=== PATIENT | female | born 1960 | race Two or more races ===

== ENCOUNTER 2022-05-02 17:38 | Emergency (ER) | payer OTHER ==
[2022-05-02] MEDS ORDERED: HYDROCODONE/APAP 7.5/325 MG TAB ONE (17:54)
[2022-05-02] MEDS ORDERED: KETOROLAC 30 MG/ML INJ ONE (17:54)
[2022-05-02] MEDS ORDERED: ONDANSETRON 4 MG (ODT) TAB ONE (17:54)
--- NOTE | 2022-05-02 18:25 | RAD REPORT ---
EXAM DESCRIPTION: RAD - Knee Right 3 View - 05/02/2022 6:12 pm CLINICAL HISTORY: PAIN COMPARISON: No comparisons FINDINGS: Mildly comminuted patellar fracture is present. Mild surrounding soft tissues. Small joint effusion.
--- NOTE | 2022-05-19 14:17 | ER ---
Nurse's Notes [facility] Name: Tamiko Garcia Age: 61 yrs Sex: Female : 1960 Arrival Date: 05/02/2022 Time: 17:44 Bed 8 Private MD: Diagnosis: Fracture of patella Presentation: 05/02 18:02 Chief complaint: Patient states: [place] slipped and fell on rocks, landed directly on R knee, obvious deformity to R knee, denies other injury. Coronavirus screen: Vaccine status: Patient reports receiving the 2nd dose of the covid vaccine. Ebola Screen: No symptoms or risks identified at this time. Initial Sepsis Screen: Does the patient meet any 2 criteria? No. Patient's initial sepsis screen is negative. Does the patient have a suspected source of infection? No. Patient's initial sepsis screen is negative. Risk Assessment: Do you want to hurt yourself or someone else? Patient reports no desire to harm self or others. Onset of symptoms was May 02, 2022. 18:02 Method Of Arrival: Wheelchair 18:02 Acuity: ABDIRAHMAN 4 ph 18:12 Care prior to arrival: None. Mechanism of Injury: Fall from standing position. Trauma ph event details: Injury occurred in the [facility], Injury occurred: in a recreational area. Injury occurred: May 02, 2022. Triage Assessment: 18:09 General: Appears in no apparent distress. uncomfortable, slender, well groomed, ph Behavior is calm, cooperative, appropriate for age. Pain: Complains of pain in right knee. Neuro: Level of Consciousness is awake, alert, obeys commands, Oriented to person, place, time, situation. Cardiovascular: Capillary refill < 3 seconds in bilateral fingers Patient's skin is warm and dry. Respiratory: Airway is patent Respiratory effort is even, unlabored. Derm: Skin is pink, warm \T\ dry. Musculoskeletal: Bony deformity noted of right knee. Injury Description: Abrasion sustained to right knee. Trauma Activation: Not Applicable Physician: ED Physician; Name: ; Notified At: ; Arrived At: Physician: General Surgeon; Name: ; Notified At: ; Arrived At: Physician: Radiology; Name: ; Notified At: ; Arrived At: Physician: Respiratory; Name: ; Notified At: ; Arrived At: Physician: Lab; Name: ; Notified At: ; Arrived At: Historical: - Allergies: 18:07 No Known Allergies; ph - PMHx: 18:07 Hypertensive disorder; depression; ph - Immunization history:: Adult Immunizations unknown. - Social history:: Smoking status: Patient reports the use of cigarette tobacco products, denies chronic smoking, but will smoke occasionally. - Immunization history: Last tetanus immunization: unknown. Screenin:10 [facility] ED Fall Risk Assessment (Adult) History of falling in the last 3 months, ph including since admission Yes- single mechanical fall (1 pt) Confusion or Disorientation No (0 pts) Intoxicated or Sedated No (0 pts) Impaired Gait Yes (1 pt) Mobility Assist Device Used No (0 pt) Altered Elimination No (0 pt). Abuse screen: Denies threats or abuse. Denies injuries from another. Nutritional screening: No deficits noted. Tuberculosis screening: No symptoms or risk factors identified. Primary Survey: 18:11 NO uncontrolled hemorrhage observed. A: The client is awake and alert. The airway is ph patent. Breathing/Chest: Spontaneous respiratory effort, equal unlabored respirations, breath sounds clear bilaterally, regular pattern, symmetrical chest rise and fall. Circulation: No external hemorrhage present. Regular and strong central pulse, skin warm/dry/normal color. Disability Pupils are equal, round, reactive to light and accommodation. Exposure/Environment: There is no evidence of uncontrolled external bleeding. Obvious injury(ies) are noted at this time: obvious deformity to R knee A warming method has been applied: A warm blanket has been provided to the patient. Secondary Survey: 18:14 HEENT: No deficits noted. Musculoskeletal: Bony deformity noted of right knee. Injury ph Description: Abrasion sustained to right knee. Assessment: 18:13 General: Appears in no apparent distress. uncomfortable, well groomed, Behavior is ph calm, cooperative, appropriate for age. Pain: Complains of pain in right knee. Respiratory: Airway is patent Respiratory effort is even, unlabored. Musculoskeletal: Bony deformity noted of right knee. Injury Description: Abrasion sustained to right knee. Vital Signs: 18:02 BP 156 / 86; Pulse 85; Resp 18; Temp 97.7; Pulse Ox 100% on R/A; ph 18:13 Weight 48.08 kg; Height 5 ft. 3 in. ; ph 18:13 Body Mass Index 18.78 (48.08 kg, 160.02 cm) ph Derry Coma Score: 18:11 Eye Response: spontaneous(4). Motor Response: obeys commands(6). Verbal Response: ph oriented(5). Total: 15. Trauma Score (Adult): 18:11 Eye Response: spontaneous(1); Verbal Response: oriented(1); Motor Response: obeys ph commands(2); Systolic BP: > 89 mm Hg(4); Respiratory Rate: 10 to 29 per min(4); Anne Score: 15; Trauma Score: 12 ED Course: 17:44 Patient arrived in ED. mr 17:46 Chirag Godwinistin, ISSA is [facility]. kb 17:46 Adalid Perez MD is Attending Physician. kb 17:47 Demi Chacon, SANDHYA is Primary Nurse. ph 18:07 Triage completed. ph 18:10 Arm band placed on Patient placed in an exam room, on a stretcher. ph 18:12 Patient has correct armband on for positive identification. Bed in low position. Call ph light in reach. Side rails up X 1. Client placed on continuous cardiac and pulse oximetry monitoring. NIBP monitoring applied. 18:12 Patient maintains SpO2 saturation greater than 95% on room air. Thermoregulation: warm ph blanket given to patient. 18:14 Knee Right 3 View XRAY In Process Unspecified. EDMS 20:03 No provider procedures requiring assistance completed. Patient did not have IV access vc1 during this emergency room visit. Administered Medications: 18:12 Drug: Ondansetron PO 4 mg Route: PO; ph 20:03 Follow up: Response: No adverse reaction; Pain is decreased vc1 18:13 Drug: Ketorolac IM 30 mg Route: IM; Site: right vastus lateralis; ph 20:02 Follow up: Response: No adverse reaction; Pain is decreased vc1 18:13 Drug: Hydrocodone-Acetaminophen PO (7.5 mg-325 mg) 1 tabs Route: PO; ph 20:03 Follow up: Response: No adverse reaction; Pain is decreased vc1 Medication: 20:04 VIS not applicable for this client. vc1 Outcome: 19:26 Discharge ordered by . kb 20:04 Discharged to home with crutches. vc1 20:04 Condition: good 20:04 Discharge instructions given to patient, Instructed on discharge instructions, follow up and referral plans. medication usage, crutch walking, Demonstrated understanding of instructions, follow-up care, medications, crutch walking, Prescriptions given X 1. 20:05 Patient left the ED. vc1 Signatures: Dispatcher [employer] EDMI Tiffanie Godwin, ISSA BERNARD-Racheal Ibrahim Demi Chacon RN RN Aleyda Nunn RN RN vc1
--- NOTE | 2022-05-19 14:17 | EDPHYS ---
Physician Documentation [facility] Name: Tamiko Garcia Age: 61 yrs Sex: Female : 1960 Arrival Date: 05/02/2022 Time: 17:44 Bed 8 Private MD: ED Physician Adalid Perez HPI: 05/02 19:46 This 61 yrs old Female presents to ER via Wheelchair with complaints of Fall Injury, kb Knee Injury. 19:46 Details of fall: The patient fell from an upright position, while walking. Onset: The kb symptoms/episode began/occurred just prior to arrival. Associated injuries: The patient sustained right knee. Severity of symptoms: At their worst the symptoms were moderate, in the emergency department the symptoms are unchanged. The patient has not experienced similar symptoms in the past. The patient has not recently seen a physician. Historical: - Allergies: 18:07 No Known Allergies; ph - PMHx: 18:07 Hypertensive disorder; depression; ph - Immunization history:: Adult Immunizations unknown. - Social history:: Smoking status: Patient reports the use of cigarette tobacco products, denies chronic smoking, but will smoke occasionally. - Immunization history: Last tetanus immunization: unknown. ROS: 19:46 Constitutional: Negative for fever, chills, and weight loss. kb 19:46 MS/extremity: Positive for deformity, pain, swelling, tenderness, of the right knee. 19:46 All other systems are negative. Exam: 19:46 Constitutional: This is a well developed, well nourished patient who is awake, alert, kb and in no acute distress. Head/Face: Normocephalic, atraumatic. ENT: Moist Mucous membranes Cardiovascular: Regular rate and rhythm with a normal S1 and S2. No gallops, murmurs, or rubs. No pulse deficits. Respiratory: Respirations even and unlabored. No increased work of breathing. Talking in full sentences Skin: Warm, dry with normal turgor. Normal color. Neuro: Awake and alert, GCS 15, oriented to person, place, time, and situation. Moves all extremities. Normal gait. Psych: Awake, alert, with orientation to person, place and time. Behavior, mood, and affect are within normal limits. 19:46 Musculoskeletal/extremity: Extremities: grossly normal except: noted in the right knee: pain, swelling, tenderness, ROM: limited active range of motion due to pain, Circulation is intact in all extremities. Sensation intact. Weight bearing: can bear weight with assistance only. Vital Signs: 18:02 BP 156 / 86; Pulse 85; Resp 18; Temp 97.7; Pulse Ox 100% on R/A; ph 18:13 Weight 48.08 kg; Height 5 ft. 3 in. ; ph 18:13 Body Mass Index 18.78 (48.08 kg, 160.02 cm) ph Anne Coma Score: 18:11 Eye Response: spontaneous(4). Motor Response: obeys commands(6). Verbal Response: ph oriented(5). Total: 15. Trauma Score (Adult): 18:11 Eye Response: spontaneous(1); Verbal Response: oriented(1); Motor Response: obeys ph commands(2); Systolic BP: > 89 mm Hg(4); Respiratory Rate: 10 to 29 per min(4); Carson Score: 15; Trauma Score: 12 MDM: 17:46 Patient medically screened. kb 19:46 Differential diagnosis: contusion, fracture, sprain. Data reviewed: vital signs, nurses kb notes. Independent interpretation of the following test(s) in the Emergency Department X-Ray: My interpretation is X-ray reviewed by me, patella fracture confirmed.. Counseling: I had a detailed discussion with the patient and/or guardian regarding: the historical points, exam findings, and any diagnostic results supporting the discharge/admit diagnosis, radiology results, the need for outpatient follow up, a orthopedic surgeon, to return to the emergency department if symptoms worsen or persist or if there are any questions or concerns that arise at home. ED course: Patient is a 61-year-old female who presents for right knee pain [place]. On exam patient has obvious right patella fracture which was confirmed by x-ray. Knee immobilizer placed patient educated to follow-up with orthopedics. Verbal understanding received from and patient.. 05/02 17:48 Order name: Knee Right 3 View XRAY; Complete Time: 18:35 kb 05/02 19:24 Order name: Crutches; Complete Time: 20:02 kb Administered Medications: 18:12 Drug: Ondansetron PO 4 mg Route: PO; ph 20:03 Follow up: Response: No adverse reaction; Pain is decreased vc1 18:13 Drug: Ketorolac IM 30 mg Route: IM; Site: right vastus lateralis; ph 20:02 Follow up: Response: No adverse reaction; Pain is decreased vc1 18:13 Drug: Hydrocodone-Acetaminophen PO (7.5 mg-325 mg) 1 tabs Route: PO; ph 20:03 Follow up: Response: No adverse reaction; Pain is decreased vc1 Disposition Summary: 05/02/22 19:26 Discharge Ordered Location: Home kb Condition: Stable kb Diagnosis - Fracture of patella kb Followup: kb - With: Emergency Department - When: As needed - Reason: Worsening of condition Followup: kb - With: Private Physician - When: 2 - 3 days - Reason: Recheck today's complaints, Continuance of care, Re-evaluation by your physician Discharge Instructions: - Discharge Summary Sheet kb - Patellar Fracture, Adult kb Forms: - Medication Reconciliation Form kb - Thank You Letter kb - Antibiotic Education kb - Prescription Opioid Use kb Prescriptions: - Tramadol 50 mg Oral Tablet - take 1 tablet by ORAL route every 8 hours as needed; 12 tablet; Refills: 0, kb Product Selection Permitted Signatures: Dispatcher [employer] Tiffanie Mesa, [employer] CLIMBER-C MARCO ANTONIO-Demi Romo, RN RN ph Aleyda Nunn RN RN vc1
== END 2022-05-02 20:05 | disposition home or self-care (01) ==
LOC: ER 17:38
DX: S82.001A Unspecified fracture of right patella, initial encounter for closed fracture (principal); F17.210 Nicotine dependence, cigarettes, uncomplicated
CPT/HCPCS: 73562; 96372; 99284; Q0162